=== PATIENT | female | born 1970 | race Caucasian/White ===

== ENCOUNTER 2016-10-09 18:29 | Emergency (ER) | payer OTHER ==
[~2016-10-09] VITALS: Ht 162.6 cm; Wt 99.0 kg
[~2016-10-09 18:29] MED LIST: ADDERALL20 MG PO; ADVAIR 100/501 DISK IH; ADVIL200 MG PO; ALBUTEROL SULF8.5 GM IH; AMBIEN5 MG PO; AMPHETAMINE SAL15 MG PO; AMPHETAMINE SALT5 MG PO; AUGMENTIN875 MG PO; BIOTIN PO; BREO ELLIPTA 21 EACH IH; CYMBALTA30 MG PO; EXTRA STRENGTH500 M1 PO; HARD NAILS2500 MCG PO; LEVOTHYROXINE75 MCG PO; LUMIGAN 0.50 DROP/22 BOTH EYES; MELATONIN10 M1 PO; MELATONIN3 MG PO; METHOCARBAMOL750 MG PO; NAPROSYN500 MG PO; PERCOCET 10/1 TABLET PO; PERCOCET 5/31 TABLET PO; POTASSIUM CHLO10 ME4 PO; PREDNISONE20 MG PO; PROBIOTIC1 EAC2 PO; PROVENTIL,2.5 MG/3 M IH; ROBAXIN750 MG PO; SINGULAIR10 MG PO; SOMA350 MG PO; SYNTHROID75 MCG PO; TESSALON PERLE100 MG PO; VENTOLIN HFA18 GM IH; VITAMIN B-12250 MCG PO; VITAMIN D-32000 UNI2 PO; XANAX1 MG PO
[2016-10-09 18:39] VITALS: BP 133/87
== END 2016-10-09 19:05 | disposition left against medical advice (07) ==
LOC: EME 18:29
DX: M54.9 Dorsalgia, unspecified (principal); Z53.21 Procedure and treatment not carried out due to patient leaving prior to being seen by health care provider